=== PATIENT | female | born 1970 | race African-American/Black ===

== ENCOUNTER 2023-07-13 12:21 | Inpatient (IN) | payer BC ==
[~2023-07-13] VITALS: Ht 175.3 cm; Wt 115.7 kg
[2023-07-13] MEDS ORDERED: IOPAMIDOL 370 MG/ML 100 ML INFUS..BTL INJ ONE (12:58)
[2023-07-13] MEDS: ACETAMINOPHEN 325 MG TAB PO STA (13:41)
[2023-07-13 15:35] VITALS: BP 112/69; PULSE 106; RESP 18; TEMP 99; O2SAT 98
[2023-07-13] MEDS ORDERED: IBUPROFEN400 MG PO (15:39)
[2023-07-13] MEDS ORDERED: MOUNJARO5 MG/0.5 M SC (15:39)
[2023-07-13 15:48] VITALS: BP 127/81; PULSE 104; RESP 17; TEMP 99.6; O2SAT 95
[2023-07-13 15:50] VITALS: BP 127/81; PULSE 104; RESP 17; TEMP 99.6; O2SAT 95
[2023-07-13 16:00] VITALS: BP 142/82; PULSE 106; RESP 18; TEMP 99; O2SAT 99
[2023-07-13] MEDS: SODIUM CHLORIDE 0.9% 500ML 500 ML IV ONE (16:02)
[2023-07-13] MEDS: ACETAMINOPHEN 325 MG TAB PO PRN (16:03)
[2023-07-13 17:01] LABS: TROPONIN I 0.052 ng/mL (0-0.300)
[2023-07-13 17:45] LABS: HEMATOCRIT 18.4 % (34.2-44.1); HEMOGLOBIN 5.5 g/dL (12.0-16.0)
[2023-07-13 18:59] LABS: BASOPHILS % 0.5 % (0.0-1.0); EOSINOPHILS # (AUTO) 0.2 (0.0-0.4); EOSINOPHILS % 2.7 % (0.0-6.0); LYMPHOCYTES # (AUTO) 2.2 (1.0-3.2); LYMPHOCYTES % 39.7 % (18.0-39.1); MEAN CORPUSCULAR HEMOGLOBIN 31.1 pg (28-32); MEAN CORPUSCULAR HGB CONC 30.8 g/dL (31-35); MEAN CORPUSCULAR VOLUME 101.1 fL (81-99); MONOCYTES # (AUTO) 0.5 (0.2-0.8); MONOCYTES % 8.9 % (4.4-11.3); NEUTROPHILS # (AUTO) 2.7 (2.1-6.9); NEUTROPHILS % 47.8 % (38.7-80.0); PLATELET COUNT 161 x10e3/uL (140-360); RED CELL DISTRIBUTION WIDTH 14.6 % (11.7-14.4); WHITE BLOOD COUNT 5.59 x10e3/uL (4.8-10.8)
[2023-07-13 19:04] LABS: HEMATOCRIT 18.2 % (34.2-44.1); HEMOGLOBIN 5.6 g/dL (12.0-16.0)
[2023-07-13 19:28] LABS: ALBUMIN/GLOBULIN RATIO 1.3 (0.8-2.0); ANION GAP 10.9 mmol/L (8-16); BILIRUBIN,TOTAL 0.3 mg/dL (0.2-1.2); CALCIUM 8.3 mg/dL (8.4-10.2); CREATININE, SERUM 0.64 mg/dL (0.57-1.11); POTASSIUM 3.9 mmol/L (3.5-5.1); TOTAL PROTEIN 5.3 g/dL (6.5-8.1)
[2023-07-13 19:34] LABS: FERRITIN 54.24 ng/mL (4.63-204.00)
[2023-07-13] MEDS: ACETAMINOPHEN 325 MG TAB PO ONE (19:40)
[2023-07-13 20:00] VITALS: BP 119/55; PULSE 117; RESP 18; TEMP 99.5; O2SAT 99
[2023-07-14] VITALS (12 sets, daily range): BP systolic 128–172; BP diastolic 72–124; PULSE 89–109; RESP 15–21; TEMP 98.6–100; O2SAT 96–100
[2023-07-14 03:10] LABS: BILIRUBIN,URINE NEGATIVE (NEGATIVE); CLARITY,URINE CLEAR (CLEAR); COLOR,URINE YELLOW (YELLOW); GLUCOSE, URINE NEGATIVE (NEGATIVE); KETONES,URINE NEGATIVE (NEGATIVE); LEUKOCYTE ESTERASE ,URINE TRACE (NEGATIVE); NITRITE,URINE NEGATIVE (NEGATIVE); PH,URINE 6.5 (5 - 7); PROTEIN,URINE DIPSTICK NEGATIVE (NEGATIVE); URINE UROBILINOGEN 0.2 mg/dL (0.2 - 1)
[2023-07-14 04:02] LABS: BACTERIA,URINE MODERATE /HPF; EPITHELIAL CELLS,URINE FEW /LPF; RBC,URINE 0-5 /HPF (0-5)
[2023-07-14] MEDS: CIPROFLOXACIN 400 MG/D5W 200ML 200 ML IV SCH (12:58)
[2023-07-14] MEDS ORDERED: LIDOCAINE HCL 2% LOCAL INJ 5 ML SDV VIAL INJ ONE (13:07)
[2023-07-14] MEDS ORDERED: PROPOFOL IV EMULSION 10 MG/ML 20 ML VIAL ONE (13:07)
[2023-07-14] MEDS ORDERED: FENTANYL CITRATE/PF 100MCG/2 ML INJ ONE (13:24)
[2023-07-14 13:34] LABS: BASOPHILS # (AUTO) 0.1 (0.0-0.1); BASOPHILS % 0.8 % (0.0-1.0); EOSINOPHILS # (AUTO) 0.2 (0.0-0.4); HEMATOCRIT 24.3 % (34.2-44.1); HEMOGLOBIN 7.8 g/dL (12.0-16.0); LYMPHOCYTES # (AUTO) 2.2 (1.0-3.2); LYMPHOCYTES % 36.5 % (18.0-39.1); MEAN CORPUSCULAR HEMOGLOBIN 30.7 pg (28-32); MEAN CORPUSCULAR HGB CONC 32.1 g/dL (31-35); MEAN CORPUSCULAR VOLUME 95.7 fL (81-99); MONOCYTES # (AUTO) 0.5 (0.2-0.8); MONOCYTES % 8.5 % (4.4-11.3); NEUTROPHILS # (AUTO) 3.1 (2.1-6.9); NEUTROPHILS % 50.7 % (38.7-80.0); PLATELET COUNT 166 x10e3/uL (140-360); RED BLOOD COUNT 2.54 x10e6/uL (3.6-5.1); RED CELL DISTRIBUTION WIDTH 17.4 % (11.7-14.4); WHITE BLOOD COUNT 6.02 x10e3/uL (4.8-10.8)
[2023-07-14 13:50] LABS: ALBUMIN/GLOBULIN RATIO 1.1 (0.8-2.0); ANION GAP 7.8 mmol/L (8-16); BILIRUBIN,TOTAL 0.7 mg/dL (0.2-1.2); CALCIUM 8.4 mg/dL (8.4-10.2); CREATININE, SERUM 0.59 mg/dL (0.57-1.11); POTASSIUM 3.8 mmol/L (3.5-5.1); TOTAL PROTEIN 5.7 g/dL (6.5-8.1)
[2023-07-14] MEDS ORDERED: BENZOCAINE/TETRACAINE/BUTAMBEN AERO SPRAY 56 GM CAN ONE (14:11)
[2023-07-14 14:44] LABS: TROPONIN I 0.069 ng/mL (0-0.300)
[2023-07-14] MEDS: SUCRALFATE 1 GM TAB PO SCH (17:04)
[2023-07-14] MEDS ORDERED: ACETAMINOPHEN 1000 MG/100 ML IV STA (18:56)
[2023-07-14] MEDS ORDERED: LORAZEPAM INJ 2 MG/ML VIAL IV PRN (19:15)
[2023-07-14 19:23] LABS: ABG HCO3 22 mmol/L (22-26); ABG PCO2 41 mmHg (35-45); ABG PH 7.33 (7.35-7.45); ABG PO2 85 mmHg (80-105); ABG TCO2 23
[2023-07-14 20:39] LABS: BASOPHILS # (AUTO) 0.1 (0.0-0.1); BASOPHILS % 0.7 % (0.0-1.0); EOSINOPHILS # (AUTO) 0.2 (0.0-0.4); EOSINOPHILS % 2.5 % (0.0-6.0); HEMATOCRIT 25.9 % (34.2-44.1); HEMOGLOBIN 8.2 g/dL (12.0-16.0); LYMPHOCYTES # (AUTO) 1.4 (1.0-3.2); LYMPHOCYTES % 20.8 % (18.0-39.1); MEAN CORPUSCULAR HEMOGLOBIN 30.4 pg (28-32); MEAN CORPUSCULAR HGB CONC 31.7 g/dL (31-35); MEAN CORPUSCULAR VOLUME 95.9 fL (81-99); MONOCYTES # (AUTO) 0.6 (0.2-0.8); MONOCYTES % 8.3 % (4.4-11.3); NEUTROPHILS # (AUTO) 4.6 (2.1-6.9); NEUTROPHILS % 67.1 % (38.7-80.0); PLATELET COUNT 144 x10e3/uL (140-360); RED CELL DISTRIBUTION WIDTH 17.7 % (11.7-14.4); WHITE BLOOD COUNT 6.84 x10e3/uL (4.8-10.8)
[2023-07-14] MEDS: ACETAMINOPHEN 1000 MG/100 ML IV STA (21:25)
[2023-07-14] MEDS: ONDANSETRON HCL INJ 2MG/ML 2ML 2 MG/ML VIAL IV PRN (22:08)
[2023-07-14] MEDS: LIDOCAINE 4% PATCH TP SCH (22:08)
[2023-07-15] VITALS (17 sets, daily range): BP systolic 131–151; BP diastolic 65–95; PULSE 89–99; RESP 12–21; TEMP 98.2; O2SAT 96–100
[2023-07-15 07:02] LABS: BASOPHILS # (AUTO) 0.1 (0.0-0.1); BASOPHILS % 0.7 % (0.0-1.0); EOSINOPHILS # (AUTO) 0.3 (0.0-0.4); EOSINOPHILS % 4.4 % (0.0-6.0); HEMATOCRIT 26.1 % (34.2-44.1); HEMOGLOBIN 8.4 g/dL (12.0-16.0); LYMPHOCYTES # (AUTO) 1.5 (1.0-3.2); LYMPHOCYTES % 22.6 % (18.0-39.1); MEAN CORPUSCULAR HEMOGLOBIN 31.1 pg (28-32); MEAN CORPUSCULAR HGB CONC 32.2 g/dL (31-35); MEAN CORPUSCULAR VOLUME 96.7 fL (81-99); MONOCYTES # (AUTO) 0.6 (0.2-0.8); NEUTROPHILS # (AUTO) 4.3 (2.1-6.9); PLATELET COUNT 170 x10e3/uL (140-360); RED CELL DISTRIBUTION WIDTH 17.6 % (11.7-14.4); WHITE BLOOD COUNT 6.78 x10e3/uL (4.8-10.8)
[2023-07-15 07:33] LABS: ALBUMIN 3.2 g/dL (3.5-5.0); ALBUMIN/GLOBULIN RATIO 1.1 (0.8-2.0); ANION GAP 12.7 mmol/L (8-16); BILIRUBIN,TOTAL 0.6 mg/dL (0.2-1.2); CALCIUM 8.6 mg/dL (8.4-10.2); CREATININE, SERUM 0.59 mg/dL (0.57-1.11); MAGNESIUM 1.8 MG/DL (1.3-2.1); POTASSIUM 3.7 mmol/L (3.5-5.1)
[2023-07-15] MEDS: HYDROCODONE/APAP 10MG-325MG TAB PO ONE (16:17)
[2023-07-15] MEDS: LEVETIRACETAM 500 MG TAB PO SCH (19:27)
[2023-07-15] MEDS: SODIUM CHLORIDE 0.9% 250ML 250 ML IV ONE (19:35)
[2023-07-15] MEDS: SODIUM CHLORIDE 0.9% 250ML 250 ML ONE (19:35)
[2023-07-15] MEDS: HYDROCODONE/APAP 5MG-325MG TAB PO ONE (22:35)
[2023-07-16] VITALS (9 sets, daily range): BP systolic 126–157; BP diastolic 74–90; PULSE 80–91; RESP 12–16; TEMP 98–98.2; O2SAT 96–100
[2023-07-16] MEDS ORDERED: HYDROCODONE/APAP 5MG-325MG TAB PO PRN (01:15)
[2023-07-16 06:21] LABS: BASOPHILS % 0.3 % (0.0-1.0); EOSINOPHILS # (AUTO) 0.4 (0.0-0.4); HEMATOCRIT 27.8 % (34.2-44.1); HEMOGLOBIN 8.8 g/dL (12.0-16.0); LYMPHOCYTES # (AUTO) 1.4 (1.0-3.2); LYMPHOCYTES % 22.7 % (18.0-39.1); MEAN CORPUSCULAR HEMOGLOBIN 30.9 pg (28-32); MEAN CORPUSCULAR HGB CONC 31.7 g/dL (31-35); MEAN CORPUSCULAR VOLUME 97.5 fL (81-99); MONOCYTES # (AUTO) 0.8 (0.2-0.8); MONOCYTES % 12.5 % (4.4-11.3); NEUTROPHILS # (AUTO) 3.4 (2.1-6.9); PLATELET COUNT 171 x10e3/uL (140-360); RED BLOOD COUNT 2.85 x10e6/uL (3.6-5.1); RED CELL DISTRIBUTION WIDTH 17.9 % (11.7-14.4); WHITE BLOOD COUNT 5.98 x10e3/uL (4.8-10.8)
[2023-07-16 06:47] LABS: ANION GAP 12.4 mmol/L (8-16); BILIRUBIN,TOTAL 0.5 mg/dL (0.2-1.2); CALCIUM 8.7 mg/dL (8.4-10.2); CREATININE, SERUM 0.65 mg/dL (0.57-1.11); TOTAL PROTEIN 5.9 g/dL (6.5-8.1)
[2023-07-16 06:58] LABS: POTASSIUM 3.4 mmol/L (3.5-5.1)
[2023-07-16] MEDS ORDERED: CARAFATE1 GM PO (09:56)
[2023-07-16] MEDS ORDERED: CEPHALEXIN500 MG PO (09:56)
[2023-07-16] MEDS ORDERED: KEPPRA500 MG PO (09:56)
[2023-07-16] MEDS ORDERED: PANTOPRAZOLE SO40 MG PO (09:56)
[2023-07-16] MEDS ORDERED: HYDROCODON-ACE1 EA11 PO ×2 (10:44→11:24)
[2023-07-16] MEDS ORDERED: ULTRAM 50MG50 MG PO (11:11)
[2023-07-16] MEDS: HYDROCODONE/APAP 5MG-325MG TAB PO ONE (11:25)
== END 2023-07-16 11:30 | disposition home or self-care (01) | DRG 378 ==
LOC: FSED 12:31 → ERHOLD 13:07 → MED/SURG2 15:04 → ICU 07-14 19:43
PROVIDERS: ADMIT Internal Medicine; ATTEND Internal Medicine
PROC: 30233P1 Transfusion of Nonautologous Frozen Red Cells into Peripheral Vein, Percutaneous Approach (ICD-10-PCS; principal; 2023-07-13)
PROC: 0DJ08ZZ Inspection of Upper Intestinal Tract, Via Natural or Artificial Opening Endoscopic (ICD-10-PCS; 2023-07-14)
DX: K92.1 Melena (principal); N39.0 Urinary tract infection, site not specified; Z16.29 Resistance to other single specified antibiotic; D64.9 Anemia, unspecified; B96.4 Proteus (mirabilis) (morganii) as the cause of diseases classified elsewhere; K28.9 Gastrojejunal ulcer, unspecified as acute or chronic, without hemorrhage or perforation; K20.90 Esophagitis, unspecified without bleeding; I10 Essential (primary) hypertension; G40.909 Epilepsy, unspecified, not intractable, without status epilepticus; E11.9 Type 2 diabetes mellitus without complications; E66.01 Morbid (severe) obesity due to excess calories; Z68.37 Body mass index [BMI] 37.0-37.9, adult; Z98.84 Bariatric surgery status; R51.9 Headache, unspecified; M54.30 Sciatica, unspecified side; G89.29 Other chronic pain; R40.4 Transient alteration of awareness; M19.91 Primary osteoarthritis, unspecified site; Z79.899 Other long term (current) drug therapy; Z88.0 Allergy status to penicillin; Z88.5 Allergy status to narcotic agent
CPT/HCPCS: 0223U; 36415; 36600; 43235; 70450; 71045; 71046; 74176; 74177; 80048; 80053; 80076; 81001; 81003; 82550; 82607; 82728; 82746; 82805; 82948; 83540; 83735; 84466; 84484; 85014; 85018; 85025; 85045; 85610; 86850; 86900; 86920; 87040; 87086; 87186; 87400; 93306; 94799; 99284; J2001; J2405; J7040; J7050; P9016; Q2009; Q9967